=== PATIENT | female | born 1930 | race Caucasian/White ===

== ENCOUNTER → 2016-11-18 | Day surgery (SDC) | payer MEDICARE, BC ==
[~2016-11-18] MED LIST: Lactated Ringers 1,000 ML IV SCH; Propofol 200 MG/20 ML SDV IV ONE
[2016-11-18 10:22] VITALS: BP 131/60
--- NOTE | 2016-11-18 13:02 | OR ---
DATE OF OPERATION: 11/18/2016 PREOPERATIVE DIAGNOSIS: FOLLOWUP POLYPS. POSTOPERATIVE DIAGNOSIS: FOLLOWUP POLYPS. SURGEON: Mac Agudelo MD PROCEDURE: FULL-LENGTH COLONOSCOPY. ANESTHESIA: FIELD CONSULTANT due to advanced age. COMPLICATIONS: None. SPECIMEN: None. FINDINGS: Normal full length colonoscopy with marginal prep. RECOMMENDATIONS: No further routine scopes needed. INDICATIONS: The patient was scheduled by her primary physician, Dr. Guevara Nassar for followup on prior scope with polyp removal 5 years ago. DESCRIPTION OF PROCEDURE: The patient was prepped and draped, placed in the left lateral decubitus position. A lubricated Olympus colonoscope was inserted and easily advanced to the cecum. Direct visualization of the ileocecal valve and appendiceal orifice was accomplished. The bowel prep was marginal. There was a lot of liquid stool throughout most of the colon, but visualization was for the most part adequate. Upon withdrawal throughout the entire length of the colon, I could find no signs of polyps, mass, ulceration, or bleeding sites. No vascular abnormalities or significant diverticular disease. Rectal vault appeared benign. Retroflexion of the scope in the rectum showed no anal lesions. Air was then suctioned. The scope was removed without complication. SAVAGE/YASMIN /[id number]
== END ==
LOC: CC.SDS 08:09
PROVIDERS: ATTEND Family Medicine
DX: Z12.11 Encounter for screening for malignant neoplasm of colon (principal); K21.9 Gastro-esophageal reflux disease without esophagitis; E03.9 Hypothyroidism, unspecified; I10 Essential (primary) hypertension; Z79.01 Long term (current) use of anticoagulants; Z79.899 Other long term (current) drug therapy; E78.00 Pure hypercholesterolemia, unspecified; E55.9 Vitamin D deficiency, unspecified; Z88.8 Allergy status to other drugs, medicaments and biological substances; Z79.82 Long term (current) use of aspirin; Z90.49 Acquired absence of other specified parts of digestive tract; Z90.710 Acquired absence of both cervix and uterus; Z96.649 Presence of unspecified artificial hip joint; Z98.890 Other specified postprocedural states; Z72.0 Tobacco use
CPT/HCPCS: 36415; 85610; G0105; J2704; J7120; 00810

== ENCOUNTER 2018-01-26 11:15 | Emergency (ER) | payer MEDICARE, BC ==
[2018-01-26 11:28] VITALS: BP 134/85
--- NOTE | 2018-01-26 13:47 | EDM.PDOC ---
ED HPI GENERAL MEDICAL PROBLEM - General Chief Complaint: Head Injury Stated Complaint: fall, head injury Time Seen by Provider: 01/26/18 11:45 Source of Information: Reports: Patient, Family History Limitations: Reports: No Limitations - History of Present Illness INITIAL COMMENTS - FREE TEXT/NARRATIVE: Kiara is a pleasant 87 year old female who presents to the ED via private vehicle with c/o a fall and laceration to her posterior scalp. She reports she was going up the steps and missed a step. She reports she fell backwards and her head hit a brick. She denies LOC. She reports her scalp started bleeding immediately, so she came to the ED. She reports a slight headache and some dizziness. Does have a large hematoma to her posterior head. She is on Coumadin. She reports she recently restarted it after being off of it for a proedure. She reports she has some right hip pain, but nothing worse than her baseline. She is able to ambulate without difficulty. Does not offer any additional complaints. Onset: Today, Sudden Onset Date: 01/26/18 Onset Time: 11:00 Location: Reports: Head Quality: Reports: Ache Improves with: Reports: Cold Therapy, Other (pressure) Associated Symptoms: Reports: Headaches. Denies: Confusion, Chest Pain, Cough, cough w sputum, Diaphoresis, Fever/Chills, Loss of Appetite, Malaise, Nausea/ Vomiting, Rash, Shortness of Breath, Syncope, Weakness - Related Data Allergies Allergy/AdvReac Type Severity Reaction Status Date / Time acetaminophen Allergy Intermediate Hallucinati Verified 01/26/18 13:23 [From Darvocet-N] ons sulfamethoxazole Allergy Intermediate Cannot Verified 01/26/18 13:23 [From Bactrim] Remember propoxyphene napsylate Allergy Hallucinati Verified 01/26/18 13:23 [From Darvocet-N] ons trimethoprim [From Bactrim] Allergy Cannot Verified 01/26/18 13:23 Remember Home Meds: Home Meds Aspirin [Adult Low Dose Aspirin EC] 81 mg PO BEDTIME 12/30/15 [History] Levothyroxine 112 mcg PO ACBREAKFAST 12/30/15 [History] Omeprazole 20 mg PO DAILY 12/30/15 [History] Ranitidine [Zantac] 150 mg PO BEDTIME 12/30/15 [History] Simvastatin [Zocor] 10 mg PO BEDTIME 12/30/15 [History] Warfarin [Coumadin] 5 mg PO WE 12/30/15 [History] amLODIPine [Norvasc] 10 mg PO DAILY 12/30/15 [History] Biotin 5,000 mcg PO DAILY 11/16/16 [History] Calcium Carb & Citrate/Vit D3 [Calcium + D3 ER Tablet] 1 tab PO TID 11/16/16 [ History] Cholecalciferol (Vitamin D3) [Vitamin D3] 5,000 unit PO DAILY 11/16/16 [History] Ferrous Sulfate [Iron] 1 tab PO DAILY 11/16/16 [History] Furosemide 80 mg PO DAILY 11/16/16 [History] Meclizine HCl 25 mg PO DAILY PRN 11/16/16 [History] Multivitamin [Multi-Vitamin Daily] 1 tab PO DAILY 11/16/16 [History] Potassium Chloride 20 meq PO DAILY 11/16/16 [History] Triamterene/Hydrochlorothiazid [Triamterene-HCTZ 37.5-25 MG] 1 tab PO DAILY PRN 11/16/16 [History] Warfarin [Coumadin] 2.5 mg PO SUMOTUTHFRSA 01/26/18 [History] Social & Family History - Tobacco Use Smoking Status *Q: Never Smoker - Caffeine Use Caffeine Use: Reports: None ED ROS GENERAL - Review of Systems Review Of Systems: ROS reveals no pertinent complaints other than HPI. Constitutional: Reports: No Symptoms HEENT: Denies: Ear Discharge, Ear Pain, Vision Change Respiratory: Reports: No Symptoms Cardiovascular: Reports: No Symptoms GI/Abdominal: Reports: No Symptoms : Reports: No Symptoms Musculoskeletal: Reports: Leg Pain, Joint Pain (hips) Skin: Reports: Bruising (right leg, scalp) Neurological: Reports: Dizziness, Headache. Denies: Confusion, Numbness, Syncope, Tingling, Difficulty Walking, Weakness Psychiatric: Reports: No Symptoms Hematologic/Lymphatic: Reports: No Symptoms Immunologic: Reports: No Symptoms ED EXAM, HEAD INJURY - Physical Exam Exam: See Below Exam Limited By: No Limitations General Appearance: Alert, WD/WN, No Apparent Distress Head: Normocephalic, Scalp Lacerations (right posterior ), Scalp Swelling ( right posterior), Scalp Hematoma (right posterior) Eyes: Bilateral Eye: EOMI, Normal Fundi, Normal Inspection, PERRL Ears: Normal External Exam, Normal Canal, Hearing Grossly Normal, Normal TMs Nose: Normal Inspection, Normal Mucousa, No Blood Throat/Mouth: Normal Inspection, Normal Lips, Normal Teeth, Normal Gums, Normal Oropharynx, Normal Voice, No Airway Compromise Neck: Non-Tender, Full Range of Motion, Normal Alignment, Normal Inspection Respiratory: No Respiratory Distress, Lungs Clear, Normal Breath Sounds, No Accessory Muscle Use, Chest Non-Tender Cardiovascular: Normal Peripheral Pulses, Regular Rate, Rhythm, No Edema, No Gallop, No JVD, No Murmur, No Rub Back Exam: Full Range of Motion, Normal Inspection, NT Extremities: Normal Range of Motion, Non-Tender, Normal Capillary Refill, Leg Pain. No: Joint Swelling Neurologic: systems test analyst II-XII nml As Tested, No Motor/Sensory Deficits, Alert, Normal Mood/Affect, Oriented x 3 - [place] Coma Score Best Eye Response ([place]): (4) Open Spontaneously Best Verbal Response ([place]): (5) Oriented Best Motor Response ([place]): (6) Obeys Commands Course - Vital Signs Last Recorded V/S: Last Vital Signs Temp 96.8 F 01/26/18 11:19 Pulse 86 01/26/18 11:19 Resp 16 01/26/18 11:19 BP 134/85 01/26/18 11:19 Pulse Ox 94 L 01/26/18 11:19 - Orders/Labs/Meds Orders: Active Orders 24 hr Category Date Time Status Head wo Cont [CT] Stat Exams 01/26/18 11:26 Taken Labs: Laboratory Tests 01/26/18 Range/Units 12:48 PT 13.3 H (9.7-12.3) SEC INR 1.30 H (0.92-1.18) - Radiology Interpretation Free Text/Narrative:: Negative for acute issues. CT Results Date: 01/26/18 - Re-Assessments/Exams Free Text/Narrative Re-Assessment/Exam: Wound cleansed by nursing staff. Superficial abrasion approximately ~1.5 cm to right posterior scalp. Pinpoint area of bleeding. Hair shaved around abrasion. Steri strips applied to control bleeding. Departure - Departure Time of Disposition: 13:44 Disposition: Home, Self-Care 01 Condition: Good Clinical Impression: Fall Qualifiers: Encounter type: initial encounter Qualified Code(s): W19.XXXA - Unspecified fall, initial encounter Scalp laceration Qualifiers: Encounter type: initial encounter Qualified Code(s): S01.01XA - Laceration without foreign body of scalp, initial encounter - Discharge Information Instructions: Facial or Scalp Contusion, [id number], Laceration Care, Adult, [id number] Referrals: Guevara Nassar MD [Primary Care Provider] - Forms: ED Department Discharge Additional Instructions: Head CT negative Steri strips will gradually fall off. May shower as normal tomorrow. Tylenol as needed for pain Apply ice to areas of pain May also alternate heat as needed for comfort Rest the next few days until stiffness improves Follow up with Dr. Nassar - My Orders Last 24 Hours: My Active Orders 01/26/18 11:26 Head wo Cont [CT] Stat - Assessment/Plan Last 24 Hours: My Active Orders 01/26/18 11:26 Head wo Cont [CT] Stat
== END 2018-01-26 13:50 | disposition home or self-care (01) ==
LOC: CC.ED 11:15
DX: S01.01XA Laceration without foreign body of scalp, initial encounter (principal); Z79.82 Long term (current) use of aspirin; Z79.899 Other long term (current) drug therapy; Z88.6 Allergy status to analgesic agent; Z88.2 Allergy status to sulfonamides; Z88.1 Allergy status to other antibiotic agents; W10.9XXA Fall (on) (from) unspecified stairs and steps, initial encounter
CPT/HCPCS: 36415; 70450; 85610; 99283

== ENCOUNTER 2018-05-30 10:21 | Observation (INO) | payer MEDICARE, BC ==
[2018-05-30] MEDS ORDERED: Acetaminophen 325 MG Tab PO PRN (10:39)
[2018-05-30 11:15] LABS: CHLORIDE,CL 106 mEq/L (98-106); SODIUM,NA 140 mEq/L (136-145)
[2018-05-30] MEDS: Sodium Chloride 0.9% 1,000 ML IV SCH ×2 (11:35→19:42)
[2018-05-30] MEDS: Pantoprazole 40 MG Vial IVPUSH SCH (11:35)
[2018-05-30] MEDS ORDERED: Meclizine 12.5 MG Tab PO PRN (15:38)
[2018-05-31] MEDS: Sodium Chloride 0.9% 1,000 ML IV SCH ×2 (03:33→10:35)
[2018-05-31] MEDS: LEVOTHYROXINE 112 MCG PO SCH (06:37)
[2018-05-31] MEDS ORDERED: Midazolam 1 MG/ML 2 ML SDV ONE (07:48)
[2018-05-31] MEDS ORDERED: fentaNYL 100 MCG/2 ML SDV ONE (07:48)
[2018-05-31] MEDS ORDERED: Furosemide 40 MG Tab PO SCH (08:00)
[2018-05-31] MEDS ORDERED: Midazolam 1 MG/ML 2 ML SDV IV ONE (08:05)
[2018-05-31 09:00] LABS: CHLORIDE,CL 111 mEq/L (98-106); SODIUM,NA 143 mEq/L (136-145)
--- NOTE | 2018-05-31 09:02 | OR ---
DATE OF OPERATION: 05/31/2018 PREOPERATIVE DIAGNOSIS: RECTAL BLEEDING. POSTOPERATIVE DIAGNOSIS: RECTAL BLEEDING. SURGEON: Kevin Lim MD PROCEDURE: TOTAL COLONOSCOPY. ANESTHESIA: Conscious sedation with IV Versed. SPECIMEN: None. FINDINGS: Internal hemorrhoid most likely cause of her bright red rectal bleeding. RECOMMENDATIONS: This probably does not need to be operated on and she would be self limiting. INDICATIONS: This 88-year-old female has had several episodes of what she reports is a large amount of rectal bleeding. This is bright red in nature. She has some known external hemorrhoids. Her colonoscopy a year ago was normal. DESCRIPTION OF PROCEDURE: After adequate preparation with IV Versed and a preop enema, I advanced the colonoscope into the rectum. Examination showed an internal hemorrhoid that had a moderate amount of roughage area on it. It does not appear to be actively bleeding. I could get the scope up to the splenic flexure without any difficulty and from there I still was able to advance the scope along the transverse colon all the way to the ileocecal valve. A photograph of the bowel was taken. She did have a moderate amount of stool, but grossly I would have seen anything large representing a bleed from a tumor. The stool was within the transverse colon and did not have any blood mixed in with it. I did not see any active bleeding sites. She does not have any significant sigmoid diverticulosis and the rest of the rectal examination is normal. Air was suctioned from the colon and the scope removed. NESTOR/YASMIN /[id number]
[2018-05-31] MEDS: POTASSIUM CHLORIDE 20 MEQ PO SCH (09:33)
[2018-05-31] MEDS: amLODIPine 10 MG Tab*PT OWN MED PO SCH (09:33)
[2018-05-31] MEDS: TRIAMTERENE PO SCH (09:34)
[2018-05-31] MEDS: HYDROCHLOROTHIAZIDE PO SCH (09:34)
[2018-05-31] MEDS: Hydrocortisone Acetate 25 MG Supp RECTAL SCH ×2 (09:38→20:14)
[2018-05-31] MEDS: Pantoprazole 40 MG Vial IVPUSH SCH (10:31)
--- NOTE | 2018-05-31 20:49 | PCM.PN ---
- General Info Date of Service: 05/31/18 Admission Dx/Problem (Free Text): GI Bleed Functional Status: Reports: Pain Controlled, Tolerating Diet. Denies: Ambulating - Review of Systems General: Reports: Fatigue. Denies: Weakness HEENT: Reports: No Symptoms Pulmonary: Denies: Shortness of Breath, Cough Cardiovascular: Denies: Chest Pain, Edema, Lightheadedness Gastrointestinal: Reports: Abdominal Pain, Hematochezia. Denies: Nausea, Vomiting Genitourinary: Reports: No Symptoms Musculoskeletal: Reports: No Symptoms Skin: Reports: No Symptoms Neurological: Reports: No Symptoms - Patient Data Vitals - Most Recent: Last Vital Signs Temp 98.2 F 05/31/18 19:26 Pulse 72 05/31/18 19:26 Resp 18 05/31/18 19:26 BP 130/63 05/31/18 19:26 Pulse Ox 94 L 05/31/18 19:26 Weight - Most Recent: 191 lb 11.2 oz I&O - Last 24 Hours: Intake & Output 05/31/18 05/31/18 05/31/18 06:59 14:59 22:59 Intake Total 981 879 Balance 981 879 Lab Results Last 24 Hours: Laboratory Results - last 24 hr 05/31/18 05/31/18 Range/Units 08:50 08:50 WBC 5.7 (5.0-10.0) 10^3/uL RBC 3.93 L (4.00-5.50) 10^6/uL Hgb 12.0 (12.0-16.0) g/dL Hct 36.2 L (37.0-47.0) % MCV 92.1 (82.0-94.0) fL MCH 30.5 (27.0-32.0) pg MCHC 33.1 (33.0-38.0) g/dL RDW Coeff of Hal 13.4 (11.0-15.0) % Plt Count 199 (150-400) 10^3/uL Neut % (Auto) 62.8 (35-85) % Lymph % (Auto) 22.0 (10-55) % [place] % (Auto) 8.6 (0-16) % Eos % (Auto) 5.9 H (0-5) % Baso % (Auto) 0.7 (0-3) % Neut # (Auto) 3.60 (1.80-7.00) 10^3/uL Lymph # (Auto) 1.26 (1.00-4.80) 10^3/uL [place] # (Auto) 0.49 (0.00-0.80) 10^3/uL Eos # (Auto) 0.34 (0.00-0.45) 10^3/uL Baso # (Auto) 0.04 10^3/uL Sodium 143 (136-145) mEq/L Potassium 3.3 L (3.5-5.0) mEq/L Chloride 111 H (98-106) mEq/L Carbon Dioxide 26 (21-32) mmol/L BUN 9 (7-18) mg/dL Creatinine 0.8 (0.6-1.0) mg/dL Est Cr Clr Drug Dosing 42.90 mL/min Estimated GFR (MDRD) > 60 (>=60) mL/min Glucose 101 H (75-99) mg/dL Calcium 8.1 L (8.4-10.1) mg/dL C-Reactive Protein < 0.2 L (0.2-0.8) mg/dL Med Orders - Current: Current Medications Acetaminophen (Tylenol) 650 mg PO Q4H PRN PRN Reason: Pain (Mild 1-3)/fever Amlodipine Besylate (Norvasc) 10 mg PO DAILY [facility] Last Admin: 05/31/18 09:33 Dose: 10 mg Hydrocortisone Acetate (Anucort-Hc) 25 mg RECTAL BID [facility] Last Admin: 05/31/18 20:14 Dose: 25 mg Levothyroxine Sodium (Levothyroxine) 112 mcg PO ACBREAKFAST [facility] Last Admin: 05/31/18 06:37 Dose: 112 mcg Meclizine HCl (Antivert) 25 mg PO DAILY PRN PRN Reason: Dizziness Pantoprazole Sodium (Protonix Iv) 40 mg IVPUSH Q24H [facility] Last Admin: 05/31/18 10:31 Dose: 40 mg Potassium Chloride 20 Meq Er Tab *Pt Own Med* 20 each PO DAILY [facility] Last Admin: 05/31/18 09:33 Dose: 20 each Triamterene/HCTZ (Dyazide 25-37.5 Mg) 1 each PO DAILY [facility] Last Admin: 05/31/18 09:34 Dose: 1 each Discontinued Medications Fentanyl (Sublimaze) Confirm Administered Dose 100 mcg .ROUTE .STK-MED ONE Stop: 05/31/18 07:49 Last Admin: 05/31/18 07:48 Dose: Not Given Sodium Chloride (Normal Saline) 1,000 mls @ 125 mls/hr IV ASDIRECTED [facility] Last Admin: 05/31/18 10:35 Dose: 125 mls/hr Midazolam HCl (Versed 1 Mg/Ml) Confirm Administered Dose 4 mg .ROUTE .STK-MED ONE Stop: 05/31/18 07:49 Last Admin: 05/31/18 07:48 Dose: 4 mg Midazolam HCl (Versed 1 Mg/Ml) 4 mg IV .STK-MED ONE Stop: 05/31/18 08:06 Last Admin: 05/31/18 08:05 Dose: 4 mg - Exam General: Alert, Oriented HEENT: Mucous Membr. Moist/[place] Neck: Supple Lungs: Clear to Auscultation, Normal Respiratory Effort Cardiovascular: Regular Rate, Regular Rhythm, Murmurs GI/Abdominal Exam: Normal Bowel Sounds, Soft, Non-Tender Extremities: Normal Inspection, Pedal Edema (1+ pitting) Skin: Warm, Dry Neurological: No New Focal Deficit - Problem List & Annotations (1) GI bleed SNOMED Code(s): 44697533 Code(s): K92.2 - GASTROINTESTINAL HEMORRHAGE, UNSPECIFIED Status: Acute Priority: High Current Visit: Yes - Problem List Review Problem List Initiated/Reviewed/Updated: Yes - My Orders Last 24 Hours: My Active Orders 05/31/18 08:45 Hydrocortisone Acetate [Anucort-HC] 25 mg RECTAL BID 05/31/18 Lunch 2 Gram Sodium Diet [DIET] - Assessment Assessment:: GI Bleed - Plan Plan:: Patient states is feeling better now. Had some rectal burning after the enema but that has now resolved. Had a flex sig this am which did show a large internal hemorrhoid, currently not bleeding. Dr. Lim was able to see throughout the colon, no other areas of concern were noted. Labs noted, hemoglobin stable at 12. Potassium low at 3.3. CRP negative. Will start the patient on Anusol HC suppositories. Increase diet and see how she tolerates. Repeat labs in am.
[2018-06-01] MEDS: LEVOTHYROXINE 112 MCG PO SCH (06:44)
[2018-06-01 07:07] VITALS: BP 131/60
[2018-06-01] MEDS: TRIAMTERENE PO SCH (07:59)
[2018-06-01] MEDS: amLODIPine 10 MG Tab*PT OWN MED PO SCH (07:59)
[2018-06-01] MEDS: HYDROCHLOROTHIAZIDE PO SCH (07:59)
[2018-06-01] MEDS: Hydrocortisone Acetate 25 MG Supp RECTAL SCH (07:59)
[2018-06-01] MEDS: POTASSIUM CHLORIDE 20 MEQ PO SCH (08:00)
--- NOTE | 2018-06-03 20:24 | PCM.DCSUM1 ---
Discharge Summary - Hospital Course Free Text/Narrative:: Patient presented to clinic to see Chiquita for rectal bleeding. She had noted the evening prior that she had burgundy stools. Had noted it several times before presentation to the clinic. [place] bleeding had stopped 1 hour prior to evaluation. By exam, had gross red blood per rectum. Had felt mildly lightheaded. She had known hemorrhoids. Colonoscopy done in 2017 with polyp removal. Admitted for serial enzymes. Started on Protonix. Diagnosis: Stroke: No Modified [place] Scale: No Symptoms at All Modified Gill Scale Score: 0 - Discharge Data Discharge Date: 06/01/18 Discharge Disposition: Home, Self-Care 01 Condition: Good - Discharge Diagnosis/Problem(s) (1) GI bleed SNOMED Code(s): 89165047 ICD Code: K92.2 - GASTROINTESTINAL HEMORRHAGE, UNSPECIFIED Status: Acute Priority: High - Patient Summary/Data Complications: none Consults: Consultations 05/30/18 10:39 PT Evaluation and Treatment [CONS] Routine 05/30/18 19:59 Consult to Physician [CONS] Urgent Hospital Course: Patient with rectal bleeding. Had one positive stool on night of admission. Dr. Lim did do flex sig on patient with notable internal hemorrhoid noted. Not bleeding at time of scope. Dr. Lim able to see through much of large colon without other notable areas of bleeding. Hemoglobins stable. Hemoglobin at 14 on admit day, still 12 today with no further bleeding. Anusol HC suppositories started yesterday and patient tolerating well. Appetite has been good, no nausea or abdominal pain. No rectal pain. Up and ambulating. - Patient Instructions Diet: Usual Diet as Tolerated Activity: As Tolerated - Discharge Plan *PRESCRIPTION DRUG MONITORING PROGRAM REVIEWED*: No *COPY OF PRESCRIPTION DRUG MONITORING REPORT IN PATIENT MAMIE: No Prescriptions/Med Rec: Hydrocortisone Acetate [Anucort-HC] 25 mg RECTAL BID #10 supp Polyethylene Glycol 3350 [MiraLAX] 17 gm PO DAILY #30 packet Home Medications: Home Meds Levothyroxine 112 mcg PO ACBREAKFAST 12/30/15 [History] Omeprazole 20 mg PO DAILY 12/30/15 [History] Ranitidine [Zantac] 150 mg PO BEDTIME 12/30/15 [History] amLODIPine [Norvasc] 10 mg PO DAILY 05/04/16 [History] Biotin 5,000 mcg PO DAILY 11/16/16 [History] Calcium Carb & Citrate/Vit D3 [Calcium + D3 ER Tablet] 1 tab PO TID 11/16/16 [ History] Cholecalciferol (Vitamin D3) [Vitamin D3] 5,000 unit PO DAILY 11/16/16 [History] Meclizine HCl 25 mg PO DAILY PRN 11/16/16 [History] Multivitamin [Multi-Vitamin Daily] 1 tab PO DAILY 11/16/16 [History] Potassium Chloride 20 meq PO DAILY 11/16/16 [History] Triamterene/Hydrochlorothiazid [Triamterene-HCTZ 37.5-25 MG] 1 tab PO DAILY PRN 11/16/16 [History] Aspirin 325 mg PO BEDTIME 05/30/18 [History] Hydrocortisone Acetate [Anucort-HC] 25 mg RECTAL BID #10 supp 06/01/18 [Rx] Polyethylene Glycol 3350 [MiraLAX] 17 gm PO DAILY #30 packet 06/01/18 [Rx] Patient Handouts: Hemorrhoids Referrals: Chiquita Stanford, [employer] C[employer]URIST [Primary Care Provider] - (Follow up with Chiquita in one week) - Discharge Summary/Plan Comment DC Time >30 min.: No Discharge Summary/Plan Comment: Discharge home Anusol HC suppositories BID for 7 days Follow up with Chiquita in 10 days - General Info Date of Service: 06/01/18 Admission Dx/Problem (Free Text: GI Bleed Functional Status: Reports: Pain Controlled, Tolerating Diet, Ambulating - Review of Systems General: Denies: Fever, Weakness, Fatigue HEENT: Reports: No Symptoms Pulmonary: Denies: Shortness of Breath, Cough Cardiovascular: Denies: Chest Pain, Edema, Lightheadedness Gastrointestinal: Reports: Hematochezia (has resolved). Denies: Abdominal Pain , Decreased Appetite, Nausea, Vomiting Genitourinary: Reports: No Symptoms Musculoskeletal: Reports: No Symptoms Skin: Reports: No Symptoms Neurological: Reports: No Symptoms - Patient Data Vitals - Most Recent: Last Vital Signs Temp 98.2 F 06/01/18 07:06 Pulse 57 L 06/01/18 07:06 Resp 20 06/01/18 07:06 BP 131/60 06/01/18 07:59 Pulse Ox 95 10/05/18 07:06 Weight - Most Recent: 191 lb 11.2 oz Med Orders - Current: Current Medications Discontinued Medications Acetaminophen (Tylenol) 650 mg PO Q4H PRN PRN Reason: Pain (Mild 1-3)/fever Amlodipine Besylate (Norvasc) 10 mg PO DAILY [facility] Last Admin: 06/01/18 07:59 Dose: 10 mg Fentanyl (Sublimaze) Confirm Administered Dose 100 mcg .ROUTE .STK-MED ONE Stop: 05/31/18 07:49 Last Admin: 05/31/18 07:48 Dose: Not Given Hydrocortisone Acetate (Anucort-Hc) 25 mg RECTAL BID [facility] Last Admin: 06/01/18 07:59 Dose: 25 mg Sodium Chloride (Normal Saline) 1,000 mls @ 125 mls/hr IV ASDIRECTED [facility] Last Admin: 05/31/18 10:35 Dose: 125 mls/hr Levothyroxine Sodium (Levothyroxine) 112 mcg PO ACBREAKFAST [facility] Last Admin: 06/01/18 06:44 Dose: 112 mcg Meclizine HCl (Antivert) 25 mg PO DAILY PRN PRN Reason: Dizziness Midazolam HCl (Versed 1 Mg/Ml) Confirm Administered Dose 4 mg .ROUTE .STK-MED ONE Stop: 05/31/18 07:49 Last Admin: 05/31/18 07:48 Dose: 4 mg Midazolam HCl (Versed 1 Mg/Ml) 4 mg IV .STK-MED ONE Stop: 05/31/18 08:06 Last Admin: 05/31/18 08:05 Dose: 4 mg Pantoprazole Sodium (Protonix Iv) 40 mg IVPUSH Q24H [facility] Last Admin: 05/31/18 10:31 Dose: 40 mg Potassium Chloride 20 Meq Er Tab *Pt Own Med* 20 each PO DAILY [facility] Last Admin: 06/01/18 08:00 Dose: 20 each Triamterene/HCTZ (Dyazide 25-37.5 Mg) 1 each PO DAILY [facility] Last Admin: 06/01/18 07:59 Dose: 1 each - Exam General: Reports: Alert, Oriented HEENT: Reports: Mucous Membr. Moist/[place] Neck: Reports: Supple Lungs: Reports: Clear to Auscultation, Normal Respiratory Effort Cardiovascular: Reports: Regular Rate, Regular Rhythm GI/Abdominal Exam: Normal Bowel Sounds, Soft, Non-Tender Extremities: Normal Inspection, No Pedal Edema Skin: Reports: Warm, Dry Neurological: Reports: No New Focal Deficit
== END 2018-06-01 10:45 | disposition home or self-care (01) ==
LOC: CC.MS 10:21
PROVIDERS: ADMIT Nurse Practitioner Family; ATTEND Family Medicine
DX: K64.8 Other hemorrhoids (principal); I10 Essential (primary) hypertension; Z79.82 Long term (current) use of aspirin; Z79.899 Other long term (current) drug therapy; Z88.1 Allergy status to other antibiotic agents; Z88.5 Allergy status to narcotic agent
CPT/HCPCS: 36415; 80048; 84484; 85014; 85018; 85025; 86140; 93005; 96361; 96374; 96376; 97010-GP; 97110-GP; 97161-GP; A9270-GY; C9113; G0378; J2250; J7030